=== PATIENT | male | born 1970 | race Caucasian/White ===

== ENCOUNTER 2017-07-26 11:01 | Emergency (ER) | payer OTHER ==
[2017-07-26] MEDS ORDERED: ALTEPLASE 100 MG/100 ML VIAL IV ONE ×2 (11:09→11:37)
--- NOTE | 2017-07-26 11:12 | EDPHY ---
H & P Time Seen by Provider: 07/26/17 11:07 HPI/ROS: CHIEF COMPLAINT: Aphasia HISTORY OF PRESENT ILLNESS: The patient is brought to the emergency department by his girlfriend after he was noted to have acute aphasia. The patient was last seen normal at 945 this morning. He does have a history of seizures however is not had a seizure since the age of 15. There has been no history of a recent fall or trauma. The patient has no known history of hyperlipidemia or hypertension. The patient is unable to provide additional history secondary to both a receptive and expressive aphasia. REVIEW OF SYSTEMS: A comprehensive 10 point review of systems is unobtainable secondary to his aphasia Source: Patient, Family Exam Limitations: Physical impairment - Medical/Surgical History Other PMH: Past medical history: Seizure disorder - Family History Significant Family History: No pertinent family hx - Social History Alcohol Use: None - Physical Exam Exam: General Appearance: Alert, no distress Eyes: Pupils equal and round no pallor or injection ENT, Mouth: Mucous membranes moist Respiratory: There are no retractions, lungs are clear to auscultation Cardiovascular: Regular rate and rhythm Gastrointestinal: Abdomen is soft and nontender, no masses, bowel sounds normal Neurological: Patient is unable to articulate with both an expressive and expressive aphasia. The patient does have some mild right facial weakness. The patient does have a slight right pronator drift. Skin: Warm and dry, no rashes Musculoskeletal: Neck is supple nontender Extremities: symmetrical, full range of motion Constitutional: Initial Vital Signs Temperature (C) 36.5 C 07/26/17 11:07 Heart Rate 58 L 07/26/17 11:07 Respiratory Rate 16 07/26/17 11:07 Blood Pressure 158/101 H 07/26/17 11:07 O2 Sat (%) 95 07/26/17 11:07 O2 Delivery Mode Room Air Allergies/Adverse Reactions: No Known Allergies Allergy (Verified 07/26/17 11:24) Home Medications: Medication Instructions Recorded Dilantin 07/26/17 Medical Decision Making - Diagnostics Imaging Results: Imaging Impressions Head CT 07/26/17 11:05 Impression: There is no acute intracranial mass effect, however, there is a finding suspicious for a hyperdense left MCA tributary vessel near the left sylvian fissure. If there is further clinical concern regarding the patient's symptoms, MR imaging is suggested, if not otherwise contraindicated. Findings were discussed with Andrae Casillas MD at 11:21, on 07/26/2017. He indicated that the patient was being evaluated by the neurologist, and a decision would be made regarding a CTA. ED Course/Re-evaluation: The patient presents to the ED last seen normal at 945 this morning with an expressive and receptive aphasia. The patient does have some slight right facial weakness and a right upper extremity drift on my initial examination. The patient was made a stroke alert immediately upon arrival. The patient was taken for a stat noncontrast CT scan of the head which does demonstrate a hyperdensity in the area of the left MCA adjacent to the sylvian fissure. Consultation was made with Dr. Wright from [facility] who evaluated the patient promptly. The patient will be started on tPA systemically and transferred to [facility] for possible intra-arterial thrombolysis. Helicopter transport has been initiated from our emergency department. The patient will be flown emergently to [facility] ED for neuro interventional evaluation. The patient did have systemic tPA initiated prior to transfer. 12:00 p.m.: The patient is transferred from our emergency department to [facility] via helicopter transfer. Differential Diagnosis: Differential diagnosis considered includes intracranial hemorrhage, ischemic stroke, Wu's paralysis, seizure Critical Care Time: Critical care time exclusive of procedures and exclusive of the PA's time was 45 minutes, performed by myself, Andrae Casillas MD. The patient presents to the ED with an acute ischemic stroke stroke. The patient will required stat consultation by tele Neurology and will be transferred by helicopter to [facility]. I have filled out the EMTALA transfer form. The patient will be transferred to the emergency department at [facility]. - Data Points Laboratory Results: Laboratory Results 07/26/17 11:10 07/26/17 11:10 07/26/17 07/26/17 07/26/17 11:13 11:10 11:10 WBC 5.93 10^3/uL 10^3/uL (3.80-9.50) RBC 5.37 10^6/uL 10^6/uL (4.40-6.38) Hgb 16.4 g/dL g/dL (13.7-17.5) POC Hgb 17.0 gm/dL gm/dL (13.7-17.5) Hct 47.6 % % (40.0-51.0) POC Hct 50 % % (40-51) MCV 88.6 fL fL (81.5-99.8) MCH 30.5 pg pg (27.9-34.1) MCHC 34.5 g/dL g/dL (32.4-36.7) RDW 12.8 % % (11.5-15.2) Plt Count 288 10^3/uL 10^3/uL (150-400) MPV 8.6 fL L fL (8.7-11.7) Neut % (Auto) 42.3 % % (39.3-74.2) Lymph % (Auto) 43.5 % % (15.0-45.0) Perkins % (Auto) 8.9 % % (4.5-13.0) Eos % (Auto) 2.9 % % (0.6-7.6) Baso % (Auto) 2.2 % H % (0.3-1.7) Nucleat RBC Rel Count 0.0 % % (0.0-0.2) Absolute Neuts (auto) 2.51 10^3/uL 10^3/uL (1.70-6.50) Absolute Lymphs (auto) 2.58 10^3/uL 10^3/uL (1.00-3.00) Absolute Monos (auto) 0.53 10^3/uL 10^3/uL (0.30-0.80) Absolute Eos (auto) 0.17 10^3/uL 10^3/uL (0.03-0.40) Absolute Basos (auto) 0.13 10^3/uL H 10^3/uL (0.02-0.10) Absolute Nucleated RBC 0.00 10^3/uL 10^3/uL (0-0.01) Immature Gran % 0.2 % % (0.0-1.1) Immature Gran # 0.01 10^3/uL 10^3/uL (0.00-0.10) POC Sodium 142 mEq/L mEq/L (135-145) Sodium 143 mEq/L mEq/L (135-145) POC Potassium 4.6 mEq/L mEq/L (3.3-5.0) Potassium 5.1 mEq/L mEq/L (3.5-5.2) POC Chloride 106 mEq/L mEq/L (97-110) Chloride 105 mEq/L mEq/L (97-110) Carbon Dioxide 24 mEq/l mEq/l (22-31) Anion Gap 14 mEq/L mEq/L (8-16) POC BUN 23 mg/dL mg/dL (7-23) BUN 20 mg/dL mg/dL (7-23) Creatinine 1.0 mg/dL mg/dL (0.7-1.3) POC Creatinine 1.0 mg/dL mg/dL (0.7-1.3) Estimated GFR > 60 Glucose 88 mg/dL mg/dL (70-100) POC Glucose 95 mg/dL mg/dL (70-100) Calcium 9.6 mg/dL mg/dL (8.5-10.4) Specimen Hemolysis 122 Phenytoin 11.7 mcg/mL mcg/mL (10.0-20.0) Point of Care Test Results: 07/26/17 11:13 POC Sodium 142 POC Potassium 4.6 POC Chloride 106 POC BUN 23 POC Creatinine 1.0 POC Glucose 95 Departure - Departure Disposition: Acute Care Hospital Not [facility] Clinical Impression: Acute ischemic stroke Condition: Critical Referrals: Patient,NotPresent [Primary Care Provider] - As per Instructions NIH Stroke Scale Date of Exam: 07/26/17 Time of Exam: 11:11 Level of Consciousness: Alert LOC Questions: Answers None LOC Commands: Performes Neither Correct Best Gaze: Normal Facial Palsy: Minor Paralysis Motor Arm-Left: No Drift Motor Leg-Left: No Drift Best Language: Severe Aphasia Dysarthria: Severe Dysarthria NIH Scale Score: 9
[2017-07-26 11:15] LABS: PLATELET COUNT 288 10^3/uL (150-400)
--- NOTE | 2017-07-26 11:21 | CPEKG ---
Heart Rate: 59 RR Interval: 1017 P-R Interval: 176 QRSD Interval: 94 QT Interval: 420 QTC Interval: 416 P Mckinnon: 71 QRS Mckinnon: 62 T Wave Mckinnon: 43 EKG Severity - ABNORMAL ECG - EKG Impression: SINUS RHYTHM Electronically Signed By: Andrae Casillas 26-Jul-2017 12:02:17
[2017-07-26 11:35] VITALS: TEMP 97.7
[2017-07-26] MEDS ORDERED: IOPAMIDOL (ISOVUE 370) 100 ML BTL IV ONE (11:36)
[2017-07-26] MEDS ORDERED: NS 50 ML IV ONE (11:37)
[2017-07-26] MEDS ORDERED: ALTEPLASE 1 MG/ML SYR IV ONE (11:37)
[2017-07-26 11:55] VITALS: RESP 18
[2017-07-26 12:22] VITALS: BP 133/87; PULSE 65; O2SAT 96
--- NOTE | 2017-07-26 12:39 | ASMTCMCOM ---
CM Note CM Note Notes: Pt presented to the Emergency Department with new onset of aphasia this morning; diagnosed with an acute ischemic stroke. CM met with pt's family - Jerri Brewer (girlfriend) and Sarah Kathleen (pt's mother). 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 Pt takes Dilantin twice daily, but is otherwise healthy. Family reports pt was here in the fall of 2016 for a colonoscopy. CM unable to locate records in system. Emotional support and education regarding diagnosis and treatment provided. Pt assessment completed by [facility]. Pt to be transferred to [facility] for further evaluation and treatment via [facility] helicopter. [place] address and directions provided to family. Phone numbers obtained: Jerri Brewer ; Sarah Kathleen (home), (cell). CM business card provided for further needs, issues or concerns. Discharge Plan: [facility] Date Signed: 07/26/2017 12:36 PM Electronically Signed By:Shirin Geronimo RN
== END 2017-07-26 11:57 | disposition short-term general hospital (02) ==
DX: I63.9 Cerebral infarction, unspecified (principal)
CPT/HCPCS: 82947-QW; J2997; Q9967